=== PATIENT | male | born 1985 | race Caucasian/White ===

== ENCOUNTER 2017-03-12 09:19 | Emergency (ER) | payer OTHER ==
[2017-03-12] MEDS ORDERED: OXYCODONE-ACETAMINOPHEN 5-325 MG TABLET PO ONE (10:00)
[2017-03-12] MEDS ORDERED: SILVER SULFADIAZINE 1% CREAM 25 GM TP ONE (10:40)
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
[2017-03-12 11:25] LABS: APPEARANCE,URINE CLEAR; BILIRUBIN,URINE NEGATIVE (NEGATIVE); GLUCOSE, URINE NEGATIVE (NEGATIVE); KETONES,URINE NEGATIVE (NEGATIVE); LEUKOCYTE ESTERASE,URINE NEGATIVE (NEGATIVE); NITRITE,URINE NEGATIVE (NEGATIVE); PROTEIN,URINE NEGATIVE (NEGATIVE); URINE SPECIFIC GRAVITY 1.021
[2017-03-12 11:48] VITALS: BP 128/85
== END 2017-03-12 11:48 | disposition home or self-care (01) ==
LOC: ER 09:19
DX: S80.212A Abrasion, left knee, initial encounter (principal); S80.211A Abrasion, right knee, initial encounter; F17.200 Nicotine dependence, unspecified, uncomplicated; M79.671 Pain in right foot; M25.552 Pain in left hip; V23.4XXA Motorcycle driver injured in collision with car, pick-up truck or van in traffic accident, initial encounter; Y92.410 Unspecified street and highway as the place of occurrence of the external cause; Z86.14 Personal history of Methicillin resistant Staphylococcus aureus infection
CPT/HCPCS: 81001; 99283

== ENCOUNTER 2017-08-10 16:50 | Emergency (ER) | payer SELFPAY ==
[2017-08-10 17:19] VITALS: BP 129/86
--- NOTE | 2017-08-10 17:39 | ER Document Report ---
HPI - HPI Patient complains to provider of: dental abscess Onset: This morning Onset/Duration: Sudden Quality of pain: Throbbing Severity: Moderate Pain Level: 4 Context: Patient states he has been having dental problems for the past few years, and woke up this morning with swelling around right upper tooth. Has no local dentist but states he will call for follow-up appointment. Associated Symptoms: None Exacerbated by: Food Relieved by: Denies Similar symptoms previously: Yes Recently seen / treated by doctor: No - ROS ROS below otherwise negative: Yes Systems Reviewed and Negative: Yes All other systems reviewed and negative - CONSTITUTIONAL Constitutional: DENIES: Fever - EENT EENT: DENIES: Congestion - NEURO Neurology: DENIES: Headache - CARDIOVASCULAR Cardiovascular: DENIES: Chest pain - RESPIRATORY Respiratory: DENIES: Trouble Breathing - GASTROINTESTINAL Gastrointestinal: DENIES: Abdominal Pain - URINARY Urinary: DENIES: Dysuria - MUSCULOSKELETAL Musculoskeletal: DENIES: Extremity pain - DERM Skin Color: Normal Past Medical History - General Information source: Patient - Social History Smoking Status: Current Every Day Smoker Frequency of alcohol use: Occasional Drug Abuse: Marijuana Lives with: Family Family History: Reviewed & Not Pertinent Patient has suicidal ideation: No Patient has homicidal ideation: No Skin Medical History: Reports Hx MRSA Traumatic Medical History: Reports: Hx Fractures - hand and nose Past Surgical History: Reports: Hx Nose Surgery, Hx Orthopedic Surgery - R hand - Immunizations Immunizations up to date: Yes Hx Diphtheria, Pertussis, Tetanus Vaccination: Yes Vertical Provider Document - CONSTITUTIONAL Agree With Documented VS: Yes Exam Limitations: No Limitations General Appearance: WD/WN, No Apparent Distress - INFECTION CONTROL TRAVEL OUTSIDE OF THE [place] IN LAST 30 DAYS: No - HEENT HEENT: Atraumatic, Normal ENT Exam, Normocephalic Mouth Diagram: 1 - mild edema around tooth with decay - NECK Neck: Normal Inspection - RESPIRATORY Respiratory: Breath Sounds Normal, No Respiratory Distress O2 Sat by Pulse Oximetry: 99 - CARDIOVASCULAR Cardiovascular: Regular Rate, Regular Rhythm - MUSCULOSKELETAL/EXTREMETIES Musculoskeletal/Extremeties: MAEW - NEURO Level of Consciousness: Awake, Alert, Appropriate - DERM Integumentary: Warm, Dry, Abscess - dental Course - Vital Signs Vital signs: Temp Pulse Resp BP Pulse Ox 98.3 F 78 20 129/86 H 99 08/10/17 17:17 08/10/17 17:17 08/10/17 17:17 08/10/17 17:17 08/10/17 17:17 Discharge - Discharge Clinical Impression: Dental abscess Condition: Good Disposition: HOME, SELF-CARE Additional Instructions: Finish all antibiotics as prescribed Motrin as needed for pain You must follow-up with the dentist for further evaluation of dental problems Return as needed Prescriptions: Penicillin V Potassium [Penicillin Vk 250 mg Tablet] 250 mg PO Q6 #40 tablet
== END 2017-08-10 17:50 | disposition home or self-care (01) ==
LOC: ER 16:50
DX: K04.7 Periapical abscess without sinus (principal); F17.200 Nicotine dependence, unspecified, uncomplicated; Z86.14 Personal history of Methicillin resistant Staphylococcus aureus infection
CPT/HCPCS: 99282

== ENCOUNTER 2018-03-13 13:38 | Emergency (ER) | payer SELFPAY ==
[2018-03-13 13:42] VITALS: BP 133/80
--- NOTE | 2018-03-13 14:08 | ER Document Report ---
ED General - General Chief Complaint: Toothache Stated Complaint: MOUTH PAIN Time Seen by Provider: 03/13/18 13:58 Notes: 32-year-old male here with complaints of right upper tooth pain ongoing for the past several years but worsening over the past few days. Pain is worse with breathing and and eating. Pain is also worse with smoking cigarettes. He has tried taking Goody's powder for the symptoms. He denies any fevers chills drainage swelling. He has not yet seen a dentist for this. TRAVEL OUTSIDE OF THE [place] IN LAST 30 DAYS: No - Related Data Allergies/Adverse Reactions: bee stings Allergy (Uncoded 03/13/18 13:38) Past Medical History - Social History Smoking Status: Current Every Day Smoker Chew tobacco use (# tins/day): No Frequency of alcohol use: Social Drug Abuse: None Family History: Reviewed & Not Pertinent Patient has suicidal ideation: No Patient has homicidal ideation: No Renal/ Medical History: Denies: Hx Peritoneal Dialysis Skin Medical History: Reports Hx MRSA Traumatic Medical History: Reports: Hx Fractures - hand and nose Past Surgical History: Reports: Hx Nose Surgery, Hx Orthopedic Surgery - R hand - Immunizations Immunizations up to date: Yes Hx Diphtheria, Pertussis, Tetanus Vaccination: Yes Review of Systems - Review of Systems Notes: See history of present illness for pertinent positive review of systems; otherwise all review of systems have been reviewed and are negative Physical Exam - Vital signs Vitals: Temp Pulse Resp BP Pulse Ox 97.7 F 64 17 133/80 H 99 03/13/18 13:41 03/13/18 13:41 03/13/18 13:41 03/13/18 13:41 03/13/18 13:41 - Notes Notes: PHYSICAL EXAMINATION: GENERAL: Well-appearing and in no acute distress. HEAD: Atraumatic, normocephalic. EYES: Pupils equal round and reactive to light, extraocular movements intact, sclera anicteric, conjunctiva are normal. ENT: nares patent, oropharynx clear without exudates. Moist mucous membranes. Significant tartar buildup where the gingiva meets the teeth. Mild tenderness to palpation/percussion of the right upper teeth. No gingival erythema induration fluctuance drainage. NECK: Normal range of motion, supple without lymphadenopathy LUNGS: CTAB and equal. No wheezes rales or rhonchi. HEART: Regular rate and rhythm without murmurs EXTREMITIES: Normal range of motion, no pitting edema. No cyanosis. NEUROLOGICAL: Cranial nerves grossly intact. Normal sensory/motor exams. PSYCH: Normal mood, normal affect. SKIN: Warm, Dry, normal turgor, no rashes or lesions noted Course - Re-evaluation Re-evalutation: 03/13/18 14:08 MEDICAL DECISION MAKING: Concern for poor dentition Instructed patient follow-up with a dentist next day or few Will give a dose of pain medication here and prescription for same Patient understands and agrees to the plan of care - Vital Signs Vital signs: Temp Pulse Resp BP Pulse Ox 97.7 F 64 17 133/80 H 99 03/13/18 13:41 03/13/18 13:41 03/13/18 13:41 03/13/18 13:41 03/13/18 13:41 Discharge - Discharge Clinical Impression: Tartar deposits on teeth Condition: Good Disposition: HOME, SELF-CARE Instructions: Dentist Additional Instructions: You were seen in the emergency department at [facility]. Please followup with your primary dentist in the next few days for further management/ evaluation. Please return to the emergency department for worsening of symptoms or any symptom that you deem to be concerning or life-threatening. Thank you for allowing us to be part of your care. Prescriptions: Meloxicam 7.5 mg PO DAILYP PRN #7 tablet PRN Reason:
[2018-03-13] MEDS: MELOXICAM 7.5 MG TABLET PO ONE (14:11)
== END 2018-03-13 14:13 | disposition home or self-care (01) ==
LOC: ER 13:38
DX: K03.6 Deposits [accretions] on teeth (principal); K08.89 Other specified disorders of teeth and supporting structures; F17.210 Nicotine dependence, cigarettes, uncomplicated; Z91.030 Bee allergy status
CPT/HCPCS: 99282

== ENCOUNTER 2018-03-13 23:56 | Emergency (ER) | payer SELFPAY ==
[2018-03-14 00:18] VITALS: BP 130/86
--- NOTE | 2018-03-14 01:16 | ER Document Report ---
ED General - General Chief Complaint: Toothache Stated Complaint: MOUTH PAIN Time Seen by Provider: 03/14/18 01:14 Mode of Arrival: Ambulatory Information source: Patient Notes: 32-year-old male presents with complaints of dental pain, patient was seen here earlier today notes that he has bad taste in his mouth that there is drainage of pus. Patient denies any fevers or chills denies any swelling TRAVEL OUTSIDE OF THE [place] IN LAST 30 DAYS: No - HPI Onset: Yesterday Onset/Duration: Persistent Quality of pain: Achy Severity: Mild Pain Level: 1 Associated symptoms: Other Exacerbated by: Food Relieved by: Denies Similar symptoms previously: Yes Recently seen / treated by doctor: Yes - Related Data Allergies/Adverse Reactions: bee stings Allergy (Uncoded 03/14/18 00:17) Past Medical History - Social History Smoking Status: Current Every Day Smoker Cigarette use (# per day): Yes Chew tobacco use (# tins/day): No Smoking Education Provided: No Family History: Reviewed & Not Pertinent Renal/ Medical History: Denies: Hx Peritoneal Dialysis Skin Medical History: Reports Hx MRSA Traumatic Medical History: Reports: Hx Fractures - hand and nose Past Surgical History: Reports: Hx Nose Surgery, Hx Orthopedic Surgery - R hand - Immunizations Immunizations up to date: Yes Hx Diphtheria, Pertussis, Tetanus Vaccination: Yes Review of Systems - Review of Systems Notes: REVIEW OF SYSTEMS: CONSTITUTIONAL : Denies fever, chills, or sweats. Denies recent illness. EENT: admits to dental pain CARDIOVASCULAR: Denies chest pain. Denies palpitations or racing or irregular heart beat. Denies ankle edema. RESPIRATORY: Denies cough, cold, or chest congestion. Denies shortness of breath, difficulty breathing, or wheezing. GASTROINTESTINAL: Denies abdominal pain or distention. Denies nausea, vomiting , or diarrhea. Denies blood in vomitus, stools, or per rectum. Denies black, tarry stools. Denies constipation. GENITOURINARY: Denies difficulty urinating, painful urination, burning, frequency, blood in urine, or discharge. MUSCULOSKELETAL: Denies back or neck pain or stiffness. Denies joint pain or swelling. SKIN: Denies rash, lesions or sores. HEMATOLOGIC : Denies easy bruising or bleeding. LYMPHATIC: Denies swollen, enlarged glands. NEUROLOGICAL: Denies confusion or altered mental status. Denies passing out or loss of consciousness. Denies dizziness or lightheadedness. Denies headache. Denies weakness or paralysis or loss of use of either side. Denies problems with gait or speech. Denies sensory loss, numbness, or tingling. Denies seizures. PSYCHIATRIC: Denies anxiety or stress. Denies depression, suicidal ideation, or homicidal ideation. ALL OTHER SYSTEMS REVIEWED AND NEGATIVE. Dictation was performed using [employer] voice recognition software PHYSICAL EXAMINATION: GENERAL: Well-appearing, well-nourished and in no acute distress. HEAD: Atraumatic, normocephalic. EYES: Pupils equal round and reactive to light, extraocular movements intact, sclera anicteric, conjunctiva are normal. ENT: admits to dental pain tooth #1, all teeth apear to have caries or ginigvitis associated NECK: Normal range of motion, supple without lymphadenopathy LUNGS: Breath sounds clear to auscultation bilaterally and equal. No wheezes rales or rhonchi. HEART: Regular rate and rhythm without murmurs ABDOMEN: Soft, nontender, nondistended abdomen. No guarding, no rebound. No masses appreciated. Musculoskeletal: Normal range of motion, no pitting or edema. No cyanosis. NEUROLOGICAL: Cranial nerves grossly intact. Normal speech, normal gait. Normal sensory, motor exams PSYCH: Normal mood, normal affect. SKIN: Warm, Dry, normal turgor, no rashes or lesions noted. Physical Exam - Vital signs Vitals: Temp Pulse Resp BP Pulse Ox 97.3 F 73 18 130/86 H 98 03/14/18 00:17 03/14/18 00:17 03/14/18 00:17 03/14/18 00:17 03/14/18 00:17 Course - Re-evaluation Re-evalutation: 03/14/18 01:49 Patient is extremely poor dentition, he will be started on antibiotics given for pain control patient does have a dentist follow-up with Airway is otherwise patent No abscess is noted no drainage is seen After performing a Medical Screening Examination, I estimate there is LOW risk for a DEEP SPACE INFECTION (e.g., CHENG'S ANGINA OR RETROPHARYNGEAL ABSCESS), MENINGITIS, INTRACRANIAL HEMORRHAGE, or AIRWAY COMPROMISE, thus I consider the discharge disposition reasonable. Also, there is no evidence or peritonitis, sepsis, or toxicity. I have reevaluated this patient multiple times and no significant life threatening changes are noted. The patient and I have discussed the diagnosis and risks, and we agree with discharging home with close follow-up with the understanding that symptoms and presentations can change. We also discussed returning to the Emergency Department immediately if new or worsening symptoms occur. We have discussed the symptoms which are most concerning (e.g., changing or worsening pain, trouble swallowing or breathing, neck stiffness or fever) that necessitate immediate return. 03/14/18 01:49 - Vital Signs Vital signs: Temp Pulse Resp BP Pulse Ox 97.3 F 73 18 130/86 H 98 03/14/18 00:17 03/14/18 00:17 03/14/18 00:17 03/14/18 00:17 03/14/18 00:17 Discharge - Discharge Clinical Impression: Dental caries, Toothache Condition: Stable Disposition: HOME, SELF-CARE Instructions: Toothache ([facility]) Additional Instructions: Please follow-up with dentist in 1 week return immediately if there are any other concerns Prescriptions: Hydrocodone/Acetaminophen [[place] 5-325 mg Tablet] 1 tab PO Q6 #8 tablet Penicillin V Potassium [Penicillin Vk 500 mg Tablet] 500 mg PO Q6 #40 tablet
[2018-03-14] MEDS: HYDROCODONE/ACETAMINOPHEN 5-325 MG TABLET PO ONE (01:38)
[2018-03-14] MEDS: AMOXICILLIN TRIHYDRATE 500 MG CAPSULE PO ONE (01:38)
== END 2018-03-14 01:43 | disposition home or self-care (01) ==
LOC: ER 23:56
DX: K02.9 Dental caries, unspecified (principal); K08.89 Other specified disorders of teeth and supporting structures; F17.210 Nicotine dependence, cigarettes, uncomplicated
CPT/HCPCS: 99282

== ENCOUNTER 2018-07-05 10:21 | Emergency (ER) | payer SELFPAY | END 2018-07-05 13:12 | disposition left against medical advice (07) | LOC: ER 10:21 | DX: Z53.21 Procedure and treatment not carried out due to patient leaving prior to being seen by health care provider (principal) ==

== ENCOUNTER 2018-08-25 22:36 | Emergency (ER) | payer SELFPAY ==
[2018-08-25 22:45] VITALS: BP 140/83
--- NOTE | 2018-08-25 23:36 | ER Document Report ---
ED Medical Screen (RME) - General Chief Complaint: Alcohol Withdrawl Stated Complaint: ETOH Time Seen by Provider: 08/25/18 23:34 Notes: 32-year-old male, chief complaint of alcohol dependence and abuse, methamphetamine dependence and abuse, and suicidal ideations. States that he does get alcohol withdrawals including tremors and feeling sick. Admits to drinking alcohol today. When asked if he is suicidal, he states that "if I do kill myself I am using drugs, it is the best way to go". Formally on anxiety medications, denies any current medications. TRAVEL OUTSIDE OF THE [place] IN LAST 30 DAYS: No - Related Data Allergies/Adverse Reactions: No Known Drug Allergies Allergy (Verified 07/05/18 10:23) bee stings Allergy (Uncoded 07/05/18 10:23) Past Medical History Renal/ Medical History: Denies: Hx Peritoneal Dialysis Skin Medical History: Reports Hx MRSA Traumatic Medical History: Reports: Hx Fractures - hand and nose Past Surgical History: Reports: Hx Nose Surgery, Hx Orthopedic Surgery - R hand - Immunizations Immunizations up to date: Yes Hx Diphtheria, Pertussis, Tetanus Vaccination: Yes Physical Exam - Vital signs Vitals: Temp Pulse Resp BP Pulse Ox 98.0 F 91 15 140/83 H 99 08/25/18 22:43 08/25/18 22:43 08/25/18 22:43 08/25/18 22:43 08/25/18 22:43 - General General appearance: Other - Appears intoxicated, slurring some words, however walks with a steady gait. Does not appear to be in any distress. Course - Vital Signs Vital signs: Temp Pulse Resp BP Pulse Ox 98.0 F 91 15 140/83 H 99 08/25/18 22:43 08/25/18 22:43 08/25/18 22:43 08/25/18 22:43 08/25/18 22:43
[2018-08-26 00:22] LABS: ABSOLUTE BASOPHILS # (AUTO) 0.2 10^3/uL (0.0-0.2); ABSOLUTE EOSINOPHILS # (AUTO) 0.7 10^3/uL (0.0-0.6); ABSOLUTE LYMPHOCYTES (AUTO) 2.6 10^3/uL (0.5-4.7); ABSOLUTE MONOCYTES (AUTO) 0.5 10^3/uL (0.1-1.4); ABSOLUTE NEUT (AUTO) 5.8 10^3/uL (1.7-8.2); BASOPHILS % (AUTO) 2.4 % (0-2); EOSINOPHILS % (AUTO) 7.4 % (0-6); HEMATOCRIT 45.4 % (37.9-51.0); LYMPHOCYTES % (AUTO) 26.5 % (13-45); MEAN CORPUSCULAR HEMOGLOBIN 33.7 pg (27.0-33.4); MEAN CORPUSCULAR HGB CONC 35.3 g/dL (32.0-36.0); MEAN CORPUSCULAR VOLUME 96 fl (80-97); MONOCYTES % (AUTO) 5.2 % (3-13); PLATELET COUNT 284 10^3/uL (150-450); RED BLOOD COUNT 4.75 10^6/uL (4.35-5.55); RED CELL DISTRIBUTION WIDTH 13.1 % (11.5-14.0); SEGMENTED NEUTROPHILS % (AUTO) 58.5 % (42-78); TOTAL CELLS COUNTED % (AUTO) 100 %; WHITE BLOOD COUNT 9.9 10^3/uL (4.0-10.5)
[2018-08-26 00:25] LABS: APPEARANCE,URINE CLEAR; BILIRUBIN,URINE NEGATIVE (NEGATIVE); COLOR,URINE STRAW; GLUCOSE, URINE NEGATIVE (NEGATIVE); KETONES,URINE NEGATIVE (NEGATIVE); LEUKOCYTE ESTERASE,URINE NEGATIVE (NEGATIVE); NITRITE,URINE NEGATIVE (NEGATIVE); PROTEIN,URINE NEGATIVE (NEGATIVE); URINE SPECIFIC GRAVITY 1.002; UROBILINOGEN,URINE NEGATIVE mg/dL (<2.0)
[2018-08-26 00:39] LABS: ALANINE AMINOTRANSFERASE 20 U/L (21-72); ALBUMIN 3.5 g/dL (3.5-5.0); ALCOHOL 239 mg/dL (NONE DETECTED); ALKALINE PHOSPHATASE 53 U/L (38-126); ANION GAP 9 (5-19); ASPARTATE AMINO TRANSFERASE 20 U/L (17-59); BILIRUBIN,DIRECT 0.3 mg/dL (0.0-0.4); BILIRUBIN,TOTAL 0.3 mg/dL (0.2-1.3); BLOOD UREA NITROGEN 5 mg/dL (7-20); CALCIUM 8.7 mg/dL (8.4-10.2); CARBON DIOXIDE 21 mmol/L (22-30); CHLORIDE 112 mmol/L (98-107); GLUCOSE 90 mg/dL (75-110); POTASSIUM 3.6 mmol/L (3.6-5.0); SODIUM 142.2 mmol/L (137-145); TOTAL PROTEIN 5.9 g/dL (6.3-8.2)
[2018-08-26 00:41] LABS: ACETAMINOPHEN < 10 ug/mL (10-30); SALICYLATE < 1.0 mg/dL (2.0-20.0)
[2018-08-26 00:51] LABS: URINE BARBITURATES SCREEN NEGATIVE; URINE BENZODIAZEPINES SCREEN NEGATIVE; URINE COCAINE SCREEN UNCONFIRMED POSITIVE; URINE MARIJUANA (THC) SCREEN UNCONFIRMED POSITIVE; URINE METHADONE SCREEN NEGATIVE; URINE PHENCYCLIDINE SCREEN NEGATIVE
[2018-08-26 01:05] LABS: URINE AMPHETAMINES SCREEN NEGATIVE
[2018-08-26] MEDS ORDERED: NICOTINE 21 MG/24 HR PATCH.TD24 TD ONE ×2 (01:27)
--- NOTE | 2018-08-26 01:49 | ER Document Report ---
ED General - General Chief Complaint: Alcohol Withdrawl Stated Complaint: ETOH Time Seen by Provider: 08/25/18 23:34 Cannot obtain history due to: Intoxicated Notes: Patient is a 32-year-old male with polysubstance abuse and dependence who presents requesting detox. Although the patient states he is here looking for detox resources he admits that he is currently intoxicated. He is somewhat belligerent with me on initial assessment, very agitated about having blood draws etc. It is quite difficult to ascertain a clear history from him on initial assessment. He is adamantly denying suicidal ideation, states he only said that to get attention and so that he could get into rehab. Denies acute medical complaints. States repeatedly "I do not know why they sent me to the hospital, I am not sick I am just trying to get into rehab". TRAVEL OUTSIDE OF THE [place] IN LAST 30 DAYS: No - Related Data Allergies/Adverse Reactions: No Known Drug Allergies Allergy (Verified 07/05/18 10:23) bee stings Allergy (Uncoded 07/05/18 10:23) Past Medical History - General Information source: Patient - Social History Smoking Status: Current Every Day Smoker Frequency of alcohol use: Heavy Drug Abuse: Bath salts, Cocaine, Marijuana, Methamphetamine Family History: Reviewed & Not Pertinent Patient has suicidal ideation: No Patient has homicidal ideation: No Renal/ Medical History: Denies: Hx Peritoneal Dialysis Skin Medical History: Reports Hx MRSA Psychiatric Medical History: Reports: Hx Attention Deficit Hyperactivity Disorder, Hx Depression Traumatic Medical History: Reports: Hx Fractures - hand and nose Past Surgical History: Reports: Hx Nose Surgery, Hx Orthopedic Surgery - R hand - Immunizations Immunizations up to date: Yes Hx Diphtheria, Pertussis, Tetanus Vaccination: Yes Review of Systems - Review of Systems Notes: Constitutional: Negative for fever. HENT: Negative for sore throat. Eyes: Negative for visual changes. Cardiovascular: Negative for chest pain. Respiratory: Negative for shortness of breath. Gastrointestinal: Negative for abdominal pain, vomiting or diarrhea. Genitourinary: Negative for dysuria. Musculoskeletal: Negative for back pain. Skin: Negative for rash. Neurological: Negative for headaches, weakness or numbness. 10 point ROS negative except as marked above and in HPI. Physical Exam - Vital signs Vitals: Temp Pulse Resp BP Pulse Ox 98.0 F 91 15 140/83 H 99 08/25/18 22:43 08/25/18 22:43 08/25/18 22:43 08/25/18 22:43 08/25/18 22:43 Notes: PHYSICAL EXAMINATION: Exam is limited by the patient's agitation GENERAL: Intoxicated, somewhat agitated HEAD: Atraumatic, normocephalic. EYES: extraocular movements intact, sclera anicteric, conjunctiva are normal. ENT: nares patent, oropharynx clear without exudates. Moderately dry mucous membranes. NECK: Normal range of motion LUNGS: Normal work of breathing EXTREMITIES: Normal range of motion, no pitting or edema. No cyanosis. NEUROLOGICAL: No focal neurological deficits. Moves all extremities spontaneously PSYCH: Agitated, speaking in a loud voice, threatening gestures SKIN: Warm, Dry, normal turgor, no rashes or lesions noted. Course - Re-evaluation Re-evalutation: 08/26/18 01:45 Presentation of an intoxicated, alcohol patient who is belligerent, agitated, quite aggressive to me during contact. He is very agitated that we proceeded to do a blood draw, had placed him on monitor, states he is here because he supposed to be going to rehab. The patient was difficult to redirect, adamantly denied suicidal ideation, stated that he had said this because "that is the only fucking way you can get help these days". He is demanding to leave , states he does not wish to remain. The patient is not having any evidence of alcohol withdrawal. His alcohol is 239. He will be discharged at his request, does not meet IVC criteria. - Vital Signs Vital signs: Temp Pulse Resp BP Pulse Ox 98.0 F 91 15 140/83 H 99 08/25/18 22:43 08/25/18 22:43 08/25/18 22:43 08/25/18 22:43 08/25/18 22:43 - Laboratory Result Diagrams: 08/26/18 00:10 08/26/18 00:10 Laboratory results interpreted by me: 08/26/18 08/26/18 00:10 00:10 MCH 33.7 H Eosinophils % 7.4 H Basophils % 2.4 H Absolute Eosinophils 0.7 H Chloride 112 H Carbon Dioxide 21 L BUN 5 L ALT 20 L Total Protein 5.9 L Salicylates < 1.0 L Acetaminophen < 10 L Discharge - Discharge Clinical Impression: Polysubstance abuse, Aggressive behavior Alcohol intoxication Qualifiers: Complication of substance-induced condition: uncomplicated Qualified Code(s): F10.920 - Alcohol use, unspecified with intoxication, uncomplicated Disposition: ELOPED
--- NOTE | 2018-08-26 10:12 | EKG REPORT ---
SEVERITY:- ABNORMAL ECG - SINUS RHYTHM PROBABLE LEFT VENTRICULAR HYPERTROPHY ST ELEV, PROBABLE NORMAL EARLY REPOL PATTERN : Confirmed by: Sebastian Turner 26-Aug-2018 10:11:37
== END 2018-08-26 01:34 | disposition left against medical advice (07) ==
LOC: ER 22:36
DX: F10.920 Alcohol use, unspecified with intoxication, uncomplicated (principal); F19.10 Other psychoactive substance abuse, uncomplicated; F91.1 Conduct disorder, childhood-onset type; Y90.7 Blood alcohol level of 200-239 mg/100 ml; Z86.14 Personal history of Methicillin resistant Staphylococcus aureus infection; F17.200 Nicotine dependence, unspecified, uncomplicated
CPT/HCPCS: 36415; 80053; 80307; 81001; 85025; 93005; 93010

== ENCOUNTER 2018-12-05 18:05 | Emergency (ER) | payer SELFPAY ==
[2018-12-05] MEDS ORDERED: ACETAMINOPHEN 325 MG TABLET PO ONE (18:28)
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
[2018-12-05 18:36] VITALS: BP 119/57
--- NOTE | 2018-12-05 20:43 | ER Document Report ---
HPI - HPI Patient complains to provider of: finger injury Time Seen by Provider: 12/05/18 20:29 Pain Level: 5 Context: Patient is a 32-year-old male presents to the emergency department complaining of a left hand injury. Patient states he was helping a friend move an air compressor when it accidentally slipped and fell down on his left middle finger, left ring finger, and left pinky. 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 Patient states his tetanus is up-to-date. Patient denies any other injuries Past medical history: None Medications: None Allergies: None - CONSTITUTIONAL Constitutional: DENIES: Fever, Chills - MUSCULOSKELETAL Musculoskeletal: REPORTS: Extremity pain Past Medical History - General Information source: Patient - Social History Smoking Status: Current Every Day Smoker Chew tobacco use (# tins/day): No Frequency of alcohol use: None Drug Abuse: None Family History: Reviewed & Not Pertinent Patient has suicidal ideation: No Patient has homicidal ideation: No Renal/ Medical History: Denies: Hx Peritoneal Dialysis Skin Medical History: Reports Hx MRSA Psychiatric Medical History: Reports: Hx Attention Deficit Hyperactivity Disorder, Hx Depression Traumatic Medical History: Reports: Hx Fractures - hand and nose Past Surgical History: Reports: Hx Nose Surgery, Hx Orthopedic Surgery - R hand - Immunizations Immunizations up to date: Yes Hx Diphtheria, Pertussis, Tetanus Vaccination: Yes Vertical Provider Document - CONSTITUTIONAL Agree With Documented VS: Yes Notes: GENERAL: Alert, interacts well. No acute distress. HEAD: Normocephalic, atraumatic. EYES: Pupils equal, round, and reactive to light. Extraocular movements intact. ENT: Oral mucosa moist, tongue midline. NECK: Full range of motion. Supple. Trachea midline. LUNGS: Clear to auscultation bilaterally, no wheezes, rales, or rhonchi. No respiratory distress. HEART: Regular rate and rhythm. No murmur ABDOMEN: Soft, non-tender. Non-distended. Bowel sounds present in all 4 quadrants. EXTREMITIES: Moves all 4 extremities spontaneously. No edema, normal radial and dorsalis pedis pulses bilaterally. No cyanosis. Patient is able to adduct and abduct all 5 fingers on the left hand against resistance. Patient also able to flex and extend all 5 fingers. Patient does have a abrasion noted to the posterior DIP of the left middle finger. Also 0.25 cm laceration noted near the nailbed of the left pinky. BACK: no cervical, thoracic, lumbar midline tenderness. No saddle anesthesia, normal distal neurovascular exam. NEUROLOGICAL: Alert and oriented x3. Normal speech. cranial nerves II through XII grossly intact PSYCH: Normal affect, normal mood. SKIN: Warm, dry, normal turgor. No rashes or lesions noted. - INFECTION CONTROL TRAVEL OUTSIDE OF THE [place] IN LAST 30 DAYS: No Course - Re-evaluation Re-evalutation: 12/05/18 20:40 Patient's x-ray shows no signs of new injuries, no fractures or dislocations noted. Discussed patient's past injury to his left distal middle finger which coincides with his x-ray results. Patient states his tetanus is up-to-date. Order for wounds to be cleansed and dressed placed, discussed with staff educator, patient stable for discharge. - Vital Signs Vital signs: Temp Pulse Resp BP Pulse Ox 98.3 F 104 H 16 119/57 L 96 12/05/18 18:33 12/05/18 18:33 12/05/18 18:33 12/05/18 18:33 12/05/18 18:33 Discharge - Discharge Clinical Impression: Crush injury, Abrasion Finger injury Qualifiers: Encounter type: initial encounter Laterality: left Qualified Code(s): S69.92XA - Unspecified injury of left wrist, hand and finger(s), initial encounter Condition: Stable Disposition: HOME, SELF-CARE Instructions: Abrasions ([facility]), Crush Injury ([facility]) Additional Instructions: As we discussed you have been seen and treated for an injury to your left hand. Your x-rays revealed no signs of fractures at this time. Your tetanus immunization is up-to-date so there is no need for tetanus vaccine at this time. Please keep the wound clean and dry. Please follow-up with your primary care provider in the next 24-48 hours. Please return to the emergency room for any other concerning symptoms. Forms: Return to Work
== END 2018-12-05 20:45 | disposition home or self-care (01) ==
LOC: ER 18:05
DX: S67.193A Crushing injury of left middle finger, initial encounter (principal); S67.195A Crushing injury of left ring finger, initial encounter; S67.197A Crushing injury of left little finger, initial encounter; W23.1XXA Caught, crushed, jammed, or pinched between stationary objects, initial encounter; F17.200 Nicotine dependence, unspecified, uncomplicated; Z86.14 Personal history of Methicillin resistant Staphylococcus aureus infection
CPT/HCPCS: 99283

== ENCOUNTER 2019-02-22 10:11 | Emergency (ER) | payer SELFPAY ==
[2019-02-22] MEDS ORDERED: NORMAL SALINE 1000 ML 1,000 ML IV ONE (10:40)
[2019-02-22] MEDS ORDERED: ONDANSETRON HCL INJ/PF 4 MG/2 ML SDV IV ONE (10:40)
--- NOTE | 2019-02-22 10:42 | ER Document Report ---
ED Medical Screen (RME) - General Chief Complaint: Abdominal Pain Stated Complaint: ABDOMINAL PAIN Time Seen by Provider: 02/22/19 10:24 TRAVEL OUTSIDE OF THE [place] IN LAST 30 DAYS: No - HPI Notes: 02/22/19 10:40 Patient is a 33-year-old male with no significant past medical history presents emergency department complaining of mid abdominal pain near his umbilicus that is described as relatively sharp with intermittent cramping that began over the past 2-3 days. He has had associated nausea and vomiting initially, but just nausea now. Patient states that he did have some loose stool yesterday, but nothing today. Patient states that there is some burning when he urinates without any discharge. No surgical history to his abdomen. Denies any headache, fever, neck pain, URI, sore throat, chest pain, palpitations, syncope, cough, shortness of breath, wheeze, dyspnea, urinary retention, hematuria, back pain, loss of control of bowel or bladder, numbness/tingling, saddle anesthesia, muscle paralysis/weakness, or rash. I have treated and performed a rapid initial assessment of this patient. A comprehensive ED assessment and evaluation of the patient, analysis of test results and completion of medical decision making process will be conducted by additional ED providers. PHYSICAL EXAMINATION: GENERAL: Well-appearing, well-nourished and in no acute distress. A&Ox4. Answers questions appropriately. LUNGS: Breath sounds clear to auscultation bilaterally and equal. No wheezes rales or rhonchi. HEART: Regular rate and rhythm without murmurs, rubs, gallops. ABDOMEN: Soft, nondistended abdomen. No guarding, no rebound. Normal bowel sounds present. No CVA tenderness bilaterally. + tenderness mid abd, but difficult to assess in PIT room. Extremities: No cyanosis, clubbing, or edema b/l. NEUROLOGICAL: Normal speech, normal gait. PSYCH: Normal mood, normal affect. - Related Data Allergies/Adverse Reactions: No Known Drug Allergies Allergy (Verified 02/22/19 10:12) bee stings Allergy (Uncoded 02/22/19 10:12) Past Medical History Renal/ Medical History: Denies: Hx Peritoneal Dialysis Skin Medical History: Reports Hx MRSA Psychiatric Medical History: Reports: Hx Attention Deficit Hyperactivity Disorder, Hx Depression Traumatic Medical History: Reports: Hx Fractures - hand and nose Past Surgical History: Reports: Hx Nose Surgery, Hx Orthopedic Surgery - R hand - Immunizations Immunizations up to date: Yes Hx Diphtheria, Pertussis, Tetanus Vaccination: Yes Physical Exam - Vital signs Vitals: Temp Pulse Resp BP Pulse Ox 97.8 F 77 18 141/93 H 97 02/22/19 10:16 02/22/19 10:16 02/22/19 10:16 02/22/19 10:16 02/22/19 10:16 Course - Vital Signs Vital signs: Temp Pulse Resp BP Pulse Ox 97.8 F 77 18 141/93 H 97 02/22/19 10:16 02/22/19 10:16 02/22/19 10:16 02/22/19 10:16 02/22/19 10:16
[2019-02-22 11:29] LABS: ABSOLUTE BASOPHILS # (AUTO) 0.1 10^3/uL (0.0-0.2); ABSOLUTE EOSINOPHILS # (AUTO) 0.6 10^3/uL (0.0-0.6); ABSOLUTE LYMPHOCYTES (AUTO) 1.8 10^3/uL (0.5-4.7); ABSOLUTE MONOCYTES (AUTO) 0.7 10^3/uL (0.1-1.4); ABSOLUTE NEUT (AUTO) 7.5 10^3/uL (1.7-8.2); BASOPHILS % (AUTO) 0.9 % (0-2); EOSINOPHILS % (AUTO) 5.6 % (0-6); HEMATOCRIT 50.4 % (37.9-51.0); HEMOGLOBIN 17.9 g/dL (13.5-17.0); LYMPHOCYTES % (AUTO) 16.9 % (13-45); MEAN CORPUSCULAR HEMOGLOBIN 34.2 pg (27.0-33.4); MEAN CORPUSCULAR HGB CONC 35.5 g/dL (32.0-36.0); MEAN CORPUSCULAR VOLUME 96 fl (80-97); MONOCYTES % (AUTO) 6.1 % (3-13); PLATELET COUNT 242 10^3/uL (150-450); RED BLOOD COUNT 5.24 10^6/uL (4.35-5.55); RED CELL DISTRIBUTION WIDTH 13.4 % (11.5-14.0); SEGMENTED NEUTROPHILS % (AUTO) 70.5 % (42-78); TOTAL CELLS COUNTED % (AUTO) 100 %; WHITE BLOOD COUNT 10.7 10^3/uL (4.0-10.5)
[2019-02-22 11:42] LABS: APPEARANCE,URINE CLEAR; BILIRUBIN,URINE NEGATIVE (NEGATIVE); COLOR,URINE YELLOW; GLUCOSE, URINE NEGATIVE (NEGATIVE); KETONES,URINE NEGATIVE (NEGATIVE); LEUKOCYTE ESTERASE,URINE NEGATIVE (NEGATIVE); NITRITE,URINE NEGATIVE (NEGATIVE); PROTEIN,URINE NEGATIVE (NEGATIVE); URINE SPECIFIC GRAVITY 1.013; UROBILINOGEN,URINE NEGATIVE mg/dL (<2.0)
--- NOTE | 2019-02-22 11:59 | ER Document Report ---
ED General - General Chief Complaint: Abdominal Pain Stated Complaint: ABDOMINAL PAIN Time Seen by Provider: 02/22/19 10:24 Primary Care Provider: [facility] [Provider Group] - Follow up in 3-5 days [facility] [Provider Group] - Follow up as needed TRAVEL OUTSIDE OF THE [place] IN LAST 30 DAYS: No - HPI Notes: Patient is a 33-year-old male that presents to the emergency department for chief complaint of abdominal pain. Patient reports periumbilical crampy abdominal pain that is intermittent in nature for the last 3-4 days. He states he was having 1-2 episodes of emesis, and his last emesis was yesterday. Patient also reports associated diarrhea. Patient states he is weaning himself off of alcohol. He is a daily drinker and states he has had very minimal today. He states he has had 3-4 shots of liquor yesterday and none so far today. He denies history of alcohol withdrawal. He states he would like to not be drinking alcohol anymore. He denies any fever, chills or hallucinations. He has not taken any medication at home for his symptoms. Past Medical History: Negative Past Surgical History: Negative Social History: Daily tobacco, daily alcohol, denies drug use Family History: Reviewed and noncontributory for presenting illness Allergies: Reviewed, see documented allergy list. REVIEW OF SYSTEMS: CONSTITUTIONAL : No fever No chills No diaphoresis No recent illness EENT: No vision changes No congestion No sore throat CARDIOVASCULAR: No chest pain No palpitations RESPIRATORY: No shortness of breath No cough No difficulty breathing GASTROINTESTINAL: abdominal pain nausea vomiting diarrhea GENITOURINARY: No dysuria No hematuria No difficulty urinating MUSCULOSKELETAL: No back pain No leg pain No arm pain SKIN: No rashes No lesions LYMPHATIC: No swollen, enlarged glands. NEUROLOGICAL: No lightheadedness No headache No weakness No paresthesias PSYCHIATRIC: No anxiety No depression PHYSICAL EXAMINATION: Vital signs reviewed, nursing noted reviewed. GENERAL: Well-appearing, well-nourished and in no acute distress. HEAD: Atraumatic, normocephalic. EYES: Eyes appear normal, extraocular movements intact, sclera anicteric, conjunctiva are normal. ENT: nares patent, oropharynx clear without exudates. Moist mucous membranes. NECK: Normal range of motion, supple without lymphadenopathy LUNGS: Breath sounds clear to auscultation bilaterally and equal. No wheezes rales or rhonchi. HEART: Regular rate and rhythm without murmurs ABDOMEN: Soft, mild diffuse tenderness, protuberant, normoactive bowel sounds. No rebound, guarding, or rigidity. No masses appreciated. EXTREMITIES: Nontender, good range of motion, no pitting or edema. NEUROLOGICAL: No focal neurological deficits. Moves all extremities spontaneously Motor and sensory grossly intact on exam. PSYCH: Normal mood, normal affect. SKIN: Warm, Dry, normal turgor, no rashes or lesions noted on exposed skin - Related Data Allergies/Adverse Reactions: No Known Drug Allergies Allergy (Verified 02/22/19 10:12) bee stings Allergy (Uncoded 02/22/19 10:12) Past Medical History - Social History Smoking Status: Current Every Day Smoker Family History: Reviewed & Not Pertinent Patient has suicidal ideation: No Patient has homicidal ideation: No Renal/ Medical History: Denies: Hx Peritoneal Dialysis Skin Medical History: Reports Hx MRSA Psychiatric Medical History: Reports: Hx Attention Deficit Hyperactivity Disorder, Hx Depression Traumatic Medical History: Reports: Hx Fractures - hand and nose Past Surgical History: Reports: Hx Nose Surgery, Hx Orthopedic Surgery - R hand - Immunizations Immunizations up to date: Yes Hx Diphtheria, Pertussis, Tetanus Vaccination: Yes Physical Exam - Vital signs Vitals: Temp Pulse Resp BP Pulse Ox 97.8 F 77 18 141/93 H 97 02/22/19 10:16 02/22/19 10:16 02/22/19 10:16 02/22/19 10:16 02/22/19 10:16 Course - Re-evaluation Re-evalutation: 02/22/19 12:10 Vitals reviewed. Nursing notes reviewed. Patient felt improved after fluids and Zofran. He has not had any vomiting in the ER. He is still complaining of abdominal pain and was given a dose of Toradol. Patient's lab work shows elevated lipase consistent with acute pancreatitis from his alcoholism. The remainder of his blood work is unremarkable. CT will be ordered to further evaluate patient's pancreas. He is currently not tachycardic or tremulous to suggest acute alcohol withdrawal requiring treatment. Laboratory 02/22/19 02/22/19 02/22/19 10:59 10:59 10:59 WBC 10.7 H RBC 5.24 Hgb 17.9 H Hct 50.4 MCV 96 MCH 34.2 H MCHC 35.5 RDW 13.4 Plt Count 242 Seg Neutrophils % 70.5 Lymphocytes % 16.9 Monocytes % 6.1 Eosinophils % 5.6 Basophils % 0.9 Absolute Neutrophils 7.5 Absolute Lymphocytes 1.8 Absolute Monocytes 0.7 Absolute Eosinophils 0.6 Absolute Basophils 0.1 Sodium 137.1 Potassium 4.5 Chloride 102 Carbon Dioxide 25 Anion Gap 10 BUN 13 Creatinine 0.79 Est GFR ( Amer) > 60 Est GFR (Non-Af Amer) > 60 Glucose 89 Calcium 9.7 Total Bilirubin 0.5 Direct Bilirubin 0.3 Neonat Total Bilirubin Not Reportable Neonat Direct Bilirubin Not Reportable Neonat Indirect Bili Not Reportable AST 31 ALT 29 Alkaline Phosphatase 83 Total Protein 7.6 Albumin 4.5 Lipase 448.4 H Urine Color YELLOW Urine Appearance CLEAR Urine pH 7.0 Ur Specific [place] 1.013 Urine Protein NEGATIVE Urine Glucose (UA) NEGATIVE Urine Ketones NEGATIVE Urine Blood SMALL H Urine Nitrite NEGATIVE Urine Bilirubin NEGATIVE Urine Urobilinogen NEGATIVE Ur Leukocyte Esterase NEGATIVE Urine WBC (Auto) 0 Urine RBC (Auto) 7 Urine Mucus (Auto) RARE Urine Ascorbic Acid NEGATIVE 02/22/19 13:48 Patient reevaluated and clinically appears improved. Patient reports he had significant symptom medic relief after Toradol. He has been able to tolerate drinking water and Gatorade without emesis. His CT scan shows no necrosis or abscess around the pancreas. Patient does have a mild pancreatitis but is tolerating intake and his pain is controlled. I had a long conversation regarding alcohol cessation. Currently his alcohol levels are negative and he i s not having any acute alcohol withdrawal symptoms. He will follow with [facility] for further substance abuse management. Patient counseled on return precautions and verbalized understanding. He was discharged in stable condition. - Vital Signs Vital signs: Temp Pulse Resp BP Pulse Ox 97.8 F 77 18 141/93 H 97 02/22/19 10:16 02/22/19 10:16 02/22/19 10:16 02/22/19 10:16 02/22/19 10:16 - Laboratory Result Diagrams: 02/22/19 10:59 02/22/19 10:59 Laboratory results interpreted by me: 02/22/19 02/22/19 02/22/19 10:59 10:59 10:59 WBC 10.7 H Hgb 17.9 H MCH 34.2 H Lipase 448.4 H Urine Blood SMALL H Discharge - Discharge Clinical Impression: Elevated blood pressure reading, Alcohol abuse Nausea and vomiting Qualifiers: Vomiting type: unspecified Vomiting Intractability: non-intractable Qualified Code(s): R11.2 - Nausea with vomiting, unspecified Abdominal pain Qualifiers: Abdominal location: generalized Qualified Code(s): R10.84 - Generalized abdominal pain Pancreatitis Qualifiers: Chronicity: acute Pancreatitis type: alcohol induced Acute pancreatitis complication: unspecified Qualified Code(s): K85.20 - Alcohol induced acute pancreatitis without necrosis or infection Condition: Stable Disposition: HOME, SELF-CARE Instructions: Chronic Alcoholism ([facility]), Pancreatitis ([facility]), Vomiting ([facility]) Additional Instructions: Please return to the emergency department if you have any worsening, or concern of your symptoms. Please return to the emergency department if you develop chest pain, difficulty breathing, severe abdominal pain, or ongoing vomiting. Please follow-up with your primary care physician in 2-3 days and any other recommended physicians. If prescribed, take all medications as directed. If you have any questions or concerns do not hesitate to return the emergency department for evaluation. You need to have your blood pressure rechecked at your primary care doctor's office, it was elevated in the ER today. Prescriptions: Ondansetron [Zofran Odt 4 mg Tablet] 1 tab PO Q4H PRN #15 tab.rapdis PRN Reason: For Nausea/Vomiting Forms: Elevated Blood Pressure Referrals: [facility] [Provider Group] - Follow up in 3-5 days [facility] [Provider Group] - Follow up as needed
[2019-02-22 12:00] LABS: ALANINE AMINOTRANSFERASE 29 U/L (21-72); ALBUMIN 4.5 g/dL (3.5-5.0); ALKALINE PHOSPHATASE 83 U/L (38-126); ANION GAP 10 (5-19); ASPARTATE AMINO TRANSFERASE 31 U/L (17-59); BILIRUBIN,DIRECT 0.3 mg/dL (0.0-0.4); BILIRUBIN,TOTAL 0.5 mg/dL (0.2-1.3); BLOOD UREA NITROGEN 13 mg/dL (7-20); CALCIUM 9.7 mg/dL (8.4-10.2); CARBON DIOXIDE 25 mmol/L (22-30); CHLORIDE 102 mmol/L (98-107); GLUCOSE 89 mg/dL (75-110); LIPASE 448.4 U/L (23-300); POTASSIUM 4.5 mmol/L (3.6-5.0); SODIUM 137.1 mmol/L (137-145); TOTAL PROTEIN 7.6 g/dL (6.3-8.2)
[2019-02-22] MEDS ORDERED: KETOROLAC TROMETHAMINE INJ/PF 30 MG/1 ML SDV IV ONE (12:07)
[2019-02-22 13:16] LABS: CHLAM PCR NOT DETECTED (NOT DETECT); GON PCR NOT DETECTED (NOT DETECT)
--- NOTE | 2019-02-22 13:19 | RADIOLOGY REPORT (SQ) ---
EXAM DESCRIPTION: CT ABD/PELVIS WITH IV ONLY COMPLETED DATE/TIME: 02/22/2019 12:53 pm REASON FOR STUDY: abdominal pain COMPARISON: None. TECHNIQUE: CT scan of the abdomen and pelvis performed using helical scanning technique with dynamic intravenous contrast injection. No oral contrast. Images reviewed with lung, soft tissue, and bone windows. Reconstructed coronal and sagittal MPR images reviewed. Delayed images for evaluation of the urinary system also acquired. All images stored on PACS. All CT scanners at this facility use dose modulation, iterative reconstruction, and/or weight based d osing when appropriate to reduce radiation dose to as low as reasonably achievable (ALARA). [facility]: Dose Right [facility]: CareDose [facility]: Dose Right [facility]: Teradose 4D [facility]: you[facility]Q - Maps With Life CONTRAST TYPE AND DOSE: contrast/concentration: Isovue 350.00 mg/ml; Total Contrast Delivered: 89.0 ml; Total Saline Delivered: 70.0 ml RENAL FUNCTION: BUN 13, creatinine 0.79 RADIATION DOSE: CT Rad equipment meets quality standard of care and radiation dose reduction techniq ues were employed. CTDIvol: 5.7 - 7.9 mGy. DLP: 705 mGy-cm.. LIMITATIONS: None. FINDINGS: LOWER CHEST: No significant findings. No nodules or infiltrates. LIVER: Normal size. No masses. No dilated ducts. SPLEEN: Normal size. No focal lesions. PANCREAS: No masses. No significant calcifications. No adjacent inflammation or peripancreatic fluid collections. Pancreatic duct not dilated. GALLBLADDER: No identified stones by CT criteria. No inflammatory changes to suggest cholecystitis. ADRENAL GLANDS: No significant masses or asymmetry. RIGHT KIDNEY AND URETER: No solid masses. No significant calcifications. No hydronephrosis or hyd roureter. LEFT KIDNEY AND URETER: No solid masses. No significant calcifications. No hydronephrosis or hydr oureter. AORTA AND VESSELS: No aneurysm. No dissection. Renal arteries, SMA, celiac without stenosis. RETROPERITONEUM: No retroperitoneal adenopathy, hemorrhage or masses. BOWEL AND PERITONEAL CAVITY: No masses or inflammatory changes. No free fluid or peritoneal masses. APPENDIX: Normal. PELVIS: No mass. No free fluid. Normal bladder. ABDOMINAL WALL: No masses. No hernias. BONES: Bone island within the proximal left femur. No acute bony abnormality. No suspicious osseous lesions. OTHER: No other significant finding. IMPRESSION: No evidence of acute intra-abdominal/pelvic process. Normal appendix. TECHNICAL DOCUMENTATION: JOB ID: [id number] Quality ID # [id number]: Final reports with documentation of one or more dose reduction techniques (e.g., Au tomated exposure control, adjustment of the mA and/or kV according to patient size, use of iterative reconstruction technique) 2010 [employer]- All Rights Reserved Reading location - IP/workstation name: [facility]
[2019-02-22 13:30] LABS: URINE AMPHETAMINES SCREEN NEGATIVE; URINE BARBITURATES SCREEN NEGATIVE; URINE BENZODIAZEPINES SCREEN NEGATIVE; URINE COCAINE SCREEN NEGATIVE; URINE MARIJUANA (THC) SCREEN UNCONFIRMED POSITIVE; URINE METHADONE SCREEN NEGATIVE; URINE PHENCYCLIDINE SCREEN NEGATIVE
[2019-02-22 13:57] VITALS: BP 137/82
== END 2019-02-22 13:59 | disposition home or self-care (01) ==
LOC: ER 10:11
DX: K85.20 Alcohol induced acute pancreatitis without necrosis or infection (principal); F10.20 Alcohol dependence, uncomplicated; R10.84 Generalized abdominal pain; R19.7 Diarrhea, unspecified; R11.2 Nausea with vomiting, unspecified; R03.0 Elevated blood-pressure reading, without diagnosis of hypertension; F17.200 Nicotine dependence, unspecified, uncomplicated; Z91.030 Bee allergy status
CPT/HCPCS: 99284; 96361; 96374; 96375; 36415; 87086; 80307 ×2; 83690; 85025; 80053; 81001; 87491; 87591; 74177; J1885; J2405; J7030

== ENCOUNTER 2019-03-06 07:51 | Emergency (ER) | payer SELFPAY ==
[2019-03-06 07:59] VITALS: BP 138/83
[2019-03-06] MEDS ORDERED: ONDANSETRON HCL INJ/PF 4 MG/2 ML SDV IV ONE (08:43)
[2019-03-06] MEDS ORDERED: NORMAL SALINE 1000 ML 1,000 ML IV ONE (08:43)
[2019-03-06] MEDS ORDERED: MAG HYDROX/AL HYDROX/SIMETH SUSP 30 ML UDCUP PO ONE (08:56)
[2019-03-06] MEDS ORDERED: LIDOCAINE 2% VISCOUS SOLN 20 ML UDCUP PO ONE (08:56)
[2019-03-06] MEDS ORDERED: METOCLOPRAMIDE HCL ORAL SOLN 10 MG/10 ML UDCUP PO ONE (08:56)
--- NOTE | 2019-03-06 08:59 | ER Document Report ---
ED General - General Chief Complaint: Lower Abdominal Pain Stated Complaint: ABDOMINAL PAIN Time Seen by Provider: 03/06/19 08:42 TRAVEL OUTSIDE OF THE U.[place]. IN LAST 30 DAYS: No - HPI Notes: Patient is a 33-year-old male that presents to the emergency department for chief complaint of abdominal pain and dental ache. Patient reports waking up this morning around 3 AM with a dental pain on his left mandibular molar. He states he took 3 200 mg tablets of Motrin and 1 600 mg tablet of Motrin at around 4 AM for the pain. He states shortly after taking the medication he began to have an epigastric discomfort. He denies any radiation of the pain. He describes it as sharp and constant. He did take a Zofran and states that gave him some relief of the associated nausea. He denies any vomiting, fevers and diarrhea. Patient has been weaning himself off of alcohol and reports he is down to 2-3 beers a day. He has an appointment at [facility] for alcohol detox in the next week or so. He was recently seen in the emergency room and had a mild pancreatitis and states after being seen here his symptoms had completely resolved prior to this morning. Past Medical History: Alcohol dependence Past Surgical History: Reviewed in chart Social History: Daily alcohol. Family History: Reviewed and noncontributory for presenting illness Allergies: Reviewed, see documented allergy list. REVIEW OF SYSTEMS: CONSTITUTIONAL : No fever No chills No diaphoresis No recent illness EENT: Dental pain No vision changes No congestion No sore throat CARDIOVASCULAR: No chest pain No palpitations RESPIRATORY: No shortness of breath No cough No difficulty breathing GASTROINTESTINAL: abdominal pain nausea No vomiting No diarrhea GENITOURINARY: No dysuria No hematuria No difficulty urinating MUSCULOSKELETAL: No back pain No leg pain No arm pain SKIN: No rashes No lesions LYMPHATIC: No swollen, enlarged glands. NEUROLOGICAL: No lightheadedness No headache No weakness No paresthesias PSYCHIATRIC: No anxiety No depression PHYSICAL EXAMINATION: Vital signs reviewed, nursing noted reviewed. GENERAL: Well-appearing, well-nourished and in no acute distress. HEAD: Atraumatic, normocephalic. EYES: Eyes appear normal, extraocular movements intact, sclera anicteric, conjunctiva are normal. ENT: Tenderness to percussion of posterior molar on right mandibular side with mild surrounding gingival erythema, no areas of fluctuance or edema. Nares patent, oropharynx clear without exudates. Moist mucous membranes. NECK: Normal range of motion, supple without lymphadenopathy LUNGS: Breath sounds clear to auscultation bilaterally and equal. No wheezes rales or rhonchi. HEART: Regular rate and rhythm without murmurs ABDOMEN: Soft, mild epigastric tenderness, normoactive bowel sounds. No rebound, guarding, or rigidity. No masses appreciated. EXTREMITIES: Nontender, good range of motion, no pitting or edema. NEUROLOGICAL: No focal neurological deficits. Moves all extremities spontaneously Motor and sensory grossly intact on exam. PSYCH: Normal mood, normal affect. SKIN: Warm, Dry, normal turgor, no rashes or lesions noted on exposed skin - Related Data Allergies/Adverse Reactions: No Known Drug Allergies Allergy (Verified 03/06/19 07:52) bee stings Allergy (Uncoded 03/06/19 07:52) Past Medical History - Social History Smoking Status: Current Every Day Smoker Family History: Reviewed & Not Pertinent Renal/ Medical History: Denies: Hx Peritoneal Dialysis Skin Medical History: Reports Hx MRSA Psychiatric Medical History: Reports: Hx Attention Deficit Hyperactivity Disorder, Hx Depression Traumatic Medical History: Reports: Hx Fractures - hand and nose Past Surgical History: Reports: Hx Nose Surgery, Hx Orthopedic Surgery - R hand - Immunizations Immunizations up to date: Yes Hx Diphtheria, Pertussis, Tetanus Vaccination: Yes Physical Exam - Vital signs Vitals: Temp Pulse Resp BP Pulse Ox 97.5 F 85 20 138/83 H 98 03/06/19 07:57 03/06/19 07:57 03/06/19 07:57 03/06/19 07:57 03/06/19 07:57 Course - Re-evaluation Re-evalutation: 03/06/19 08:58 Vitals reviewed. Nursing notes reviewed. Patient is afebrile and nontoxic. He took Zofran just prior to arrival and did have some improvement. Patient took 1200 mg of Motrin which may be the cause of his epigastric discomfort. He was given a GI cocktail for symptomatic management. He does have a history of recent pancreatitis and is continuing to use alcohol daily although he has been doing a good job of weaning himself off. Lab work will be obtained to evaluate for pancreatitis and electrolyte issues. Patient will be started on penicillin for his dental infection. There is currently no signs of dental abscess requiring drainage. 03/06/19 10:50 Patient's lab work appears normal. He did get symptomatic relief after GI cocktail. He has no acute pancreatitis. He will be discharged home in stable condition. He was encouraged to continue weaning off alcohol and follow with [facility] for detox. He will be started on omeprazole. He was counseled on NSAID use. He is stable at discharge. Laboratory 03/06/19 03/06/19 09:15 09:15 WBC 9.5 RBC 4.63 Hgb 15.7 Hct 44.3 MCV 96 MCH 33.8 H MCHC 35.3 RDW 13.0 Plt Count 239 Seg Neutrophils % 68.3 Lymphocytes % 18.5 Monocytes % 6.6 Eosinophils % 6.0 Basophils % 0.6 Absolute Neutrophils 6.5 Absolute Lymphocytes 1.7 Absolute Monocytes 0.6 Absolute Eosinophils 0.6 Absolute Basophils 0.1 Sodium 139.3 Potassium 4.5 Chloride 113 H Carbon Dioxide 22 Anion Gap 4 L BUN 12 Creatinine 0.80 Est GFR ( Amer) > 60 Est GFR (Non-Af Amer) > 60 Glucose 96 Calcium 9.2 Total Bilirubin 0.4 Direct Bilirubin 0.3 Neonat Total Bilirubin Not Reportable Neonat Direct Bilirubin Not Reportable Neonat Indirect Bili Not Reportable AST 34 ALT 19 L Alkaline Phosphatase 68 Total Protein 6.6 Albumin 3.6 Lipase 161.1 - Vital Signs Vital signs: Temp Pulse Resp BP Pulse Ox 97.5 F 85 20 138/83 H 98 03/06/19 07:57 03/06/19 07:57 03/06/19 07:57 03/06/19 07:57 03/06/19 07:57 - Laboratory Result Diagrams: 03/06/19 09:15 03/06/19 09:15 Laboratory results interpreted by me: 03/06/19 03/06/19 09:15 09:15 MCH 33.8 H Chloride 113 H Anion Gap 4 L ALT 19 L Discharge - Discharge Clinical Impression: Abdominal pain, acute, epigastric, Dental infection Condition: Stable Disposition: HOME, SELF-CARE Instructions: Abdominal Pain ([facility]), Dental Infection or Abscess ([facility]) Additional Instructions: Please return to the emergency department if you have any worsening, or concern of your symptoms. Please return to the emergency department if you develop chest pain, difficulty breathing, severe abdominal pain, or ongoing vomiting. Please follow-up with your primary care physician in 2-3 days and any other recommended physicians. If prescribed, take all medications as directed. If you have any questions or concerns do not hesitate to return the emergency department for evaluation. [] Prescriptions: Omeprazole 40 mg PO DAILY #30 capsule. Penicillin V Potassium [Penicillin Vk 500 mg Tablet] 500 mg PO BID #20 tablet Referrals: [facility] [Provider Group] - Follow up as needed
[2019-03-06] MEDS ORDERED: PENICILLIN V POTASSIUM 500 MG TABLET PO ONE (09:00)
[2019-03-06 09:37] LABS: ABSOLUTE BASOPHILS # (AUTO) 0.1 10^3/uL (0.0-0.2); ABSOLUTE EOSINOPHILS # (AUTO) 0.6 10^3/uL (0.0-0.6); ABSOLUTE LYMPHOCYTES (AUTO) 1.7 10^3/uL (0.5-4.7); ABSOLUTE MONOCYTES (AUTO) 0.6 10^3/uL (0.1-1.4); ABSOLUTE NEUT (AUTO) 6.5 10^3/uL (1.7-8.2); BASOPHILS % (AUTO) 0.6 % (0-2); HEMATOCRIT 44.3 % (37.9-51.0); HEMOGLOBIN 15.7 g/dL (13.5-17.0); LYMPHOCYTES % (AUTO) 18.5 % (13-45); MEAN CORPUSCULAR HEMOGLOBIN 33.8 pg (27.0-33.4); MEAN CORPUSCULAR HGB CONC 35.3 g/dL (32.0-36.0); MEAN CORPUSCULAR VOLUME 96 fl (80-97); MONOCYTES % (AUTO) 6.6 % (3-13); PLATELET COUNT 239 10^3/uL (150-450); RED BLOOD COUNT 4.63 10^6/uL (4.35-5.55); SEGMENTED NEUTROPHILS % (AUTO) 68.3 % (42-78); TOTAL CELLS COUNTED % (AUTO) 100 %; WHITE BLOOD COUNT 9.5 10^3/uL (4.0-10.5)
[2019-03-06 09:57] LABS: ALANINE AMINOTRANSFERASE 19 U/L (21-72); ALBUMIN 3.6 g/dL (3.5-5.0); ALKALINE PHOSPHATASE 68 U/L (38-126); ASPARTATE AMINO TRANSFERASE 34 U/L (17-59); BILIRUBIN,DIRECT 0.3 mg/dL (0.0-0.4); BILIRUBIN,TOTAL 0.4 mg/dL (0.2-1.3); BLOOD UREA NITROGEN 12 mg/dL (7-20); CALCIUM 9.2 mg/dL (8.4-10.2); GLUCOSE 96 mg/dL (75-110); LIPASE 161.1 U/L (23-300); POTASSIUM 4.5 mmol/L (3.6-5.0); TOTAL PROTEIN 6.6 g/dL (6.3-8.2)
[2019-03-06 10:03] LABS: CARBON DIOXIDE 22 mmol/L (22-30); CHLORIDE 113 mmol/L (98-107); SODIUM 139.3 mmol/L (137-145)
[2019-03-06 10:13] LABS: ANION GAP 4 (5-19)
== END 2019-03-06 11:49 | disposition home or self-care (01) ==
LOC: ER 07:51
DX: R10.13 Epigastric pain (principal); K04.7 Periapical abscess without sinus; R10.30 Lower abdominal pain, unspecified; F10.20 Alcohol dependence, uncomplicated; K08.89 Other specified disorders of teeth and supporting structures; Z79.899 Other long term (current) drug therapy; F17.200 Nicotine dependence, unspecified, uncomplicated
CPT/HCPCS: 99284; 96360; 96361; 36415; 83690; 85025; 80053; J3490; J7030

== ENCOUNTER 2020-06-06 12:00 | Emergency (ER) | payer SELFPAY ==
[2020-06-06 12:07] VITALS: BP 120/83
[2020-06-06] MEDS ORDERED: IBUPROFEN 800 MG TABLET PO ONE (12:47)
--- NOTE | 2020-06-06 12:52 | ER Document Report ---
ED Hand/Wrist Injury - General Chief Complaint: Wrist Injury Stated Complaint: WRIST PAIN Time Seen by Provider: 06/06/20 12:44 Mode of Arrival: Ambulatory Information source: Patient Notes: 34-year-old male presented to ED for pain to the right hand and wrist. He states he punched a wall last night. He states he has a lot of pain and swelling to the right hand and wrist. He does have a history of fractures to the hand nose and elbow and arm. He states he does smoke a pack a day drinks weekly. He is alert oriented respirations regular nonlabored speaking in full sentences. TRAVEL OUTSIDE OF THE [place] IN LAST 30 DAYS: No - HPI Injury to: Hand, Wrist Onset: Yesterday Where: Home Timing: Still present, Worse Quality of pain: Sharp Severity: Severe Pain Level: 5 Context: Other - Related Data Allergies/Adverse Reactions: No Known Drug Allergies Allergy (Verified 03/06/19 07:52) bee stings Allergy (Uncoded 03/06/19 07:52) Past Medical History - General Information source: Patient - Social History Smoking Status: Current Every Day Smoker Cigarette use (# per day): Yes - Pack per day Smoking Education Provided: Yes - 4 minutes Frequency of alcohol use: Social - Weekly Drug Abuse: None Family History: Reviewed & Not Pertinent - Past Medical History Cardiac Medical History: Reports: None Pulmonary Medical History: Reports: None EENT Medical History: Reports: None Neurological Medical History: Reports: None Endocrine Medical History: Reports: None Renal/ Medical History: Reports: None Malignancy Medical History: Reports None GI Medical History: Reports: None Musculoskeletal Medical History: Reports Hx Musculoskeletal Trauma Skin Medical History: Reports Hx MRSA Psychiatric Medical History: Reports: Hx Attention Deficit Hyperactivity Disorder, Hx Depression Traumatic Medical History: Reports: Hx Fractures - hand and nose and arm and elbow Infectious Medical History: Reports: None Past Surgical History: Reports: Hx Nose Surgery, Hx Orthopedic Surgery - R hand - Immunizations Immunizations up to date: Yes Hx Diphtheria, Pertussis, Tetanus Vaccination: Yes Review of Systems - Review of Systems Constitutional: No symptoms reported EENT: No symptoms reported Cardiovascular: No symptoms reported Respiratory: No symptoms reported Gastrointestinal: No symptoms reported Genitourinary: No symptoms reported Male Genitourinary: No symptoms reported Musculoskeletal: Other - Pain swelling to the right hand and wrist radial side Skin: No symptoms reported Hematologic/Lymphatic: No symptoms reported Neurological/Psychological: No symptoms reported -: Yes All other systems reviewed and negative Physical Exam - Vital signs Vitals: Temp Pulse Resp BP Pulse Ox 98.3 F 102 H 20 120/83 98 06/06/20 12:06 06/06/20 12:06 06/06/20 12:06/06/20 12:06/06/20 12:06 Interpretation: Normal - General General appearance: Appears well, Alert - HEENT Head: Normocephalic, Atraumatic Eyes: Normal Pupils: PERRL - Respiratory Respiratory status: No respiratory distress Chest status: Nontender Breath sounds: Normal Chest palpation: Normal - Cardiovascular Rhythm: Regular Heart sounds: Normal auscultation Murmur: No - Abdominal Inspection: Normal Distension: No distension Bowel sounds: Normal Tenderness: Nontender Organomegaly: No organomegaly - Back Back: Normal, Nontender - Extremities General upper extremity: Normal temperature General lower extremity: Normal inspection, Nontender, Normal color, Normal ROM, Normal temperature, Normal weight bearing. No: Cristina's sign Hand: Tender, Ecchymosis, No evidence of human bite, No evidence of FB, Swelling, Other - Thumb side swelling - Neurological Neuro grossly intact: Yes Cognition: Normal Orientation: AAOx4 [place] Coma Scale Eye Opening: Spontaneous [place] Coma Scale Verbal: Oriented [place] Coma Scale Motor: Obeys Commands Magdaleno Coma Scale Total: 15 Speech: Normal Motor strength normal: LUE, RUE, LLE, RLE Sensory: Normal - Psychological Associated symptoms: Normal affect, Normal mood - Skin Skin Temperature: Warm Skin Moisture: Dry Skin Color: Normal Course - Re-evaluation Re-evalutation: 06/06/20 22:49 Wrist x-ray showed an intra-articular fracture of the distal radius. She was treated with a sugar tong splint and sling. Patient was instructed to follow-up with orthopedics by phone tomorrow to schedule follow-up. Patient was given instructions on elevation ice and ibuprofen. Patient verbalized understanding and agreement with treatment plan and patient was discharged home. - Vital Signs Vital signs: Temp Pulse Resp BP Pulse Ox 98.3 F 102 H 20 120/83 98 06/06/20 12:06 06/06/20 12:06/06/20 12:06/06/20 12:06/06/20 12:06 - Diagnostic Test Radiology reviewed: Image reviewed, Reports reviewed Procedures - Immobilization Right Wrist Time completed: 14:32 Immobilizer type: Sugar tong, Sling Performed by: PCT Post-Proc Neuro Vasc Exam: Normal Alignment checked and good: Yes Discharge - Discharge Clinical Impression: intra-articular distal radius fracture Condition: Stable Disposition: HOME, SELF-CARE Additional Instructions: Fractured Radius you have a intra-articular fracture which means it is very important to go to the radiologist The bone called the radius is fractured. This type of fracture is typically caused by falling onto the outstretched hand. The fracture is not ser ious, however, and should heal well with adequate protection. Your physician's evaluation shows the bone is in good position to heal. A cast or splint is used to protect the fracture. For the first few days after the injury, the arm should be elevated and ice packed. Healing takes from three to eight weeks, depending on the age of the patient and the seriousness of the fracture. Your doctor has explained the treatment plan. It's important that you follow up as instructed to prevent complications. Call the doctor or return at once if severe pain or swelling occur, or if the hand becomes numb, swollen, or discolored. Ice & Elevation Apply ice packs frequently against the painful area. Many different schedules are recommended, such as "20 minutes on, 20 minutes off" or "one hour ice, two hours rest." If you need to work, you may need to go longer between ice treatments. You should plan to have the area ice packed AT LEAST one-fourth of the time. The ice should be applied over the wrap, tape, or splint, or over a layer of cloth -- not directly against the skin. Some ice bags have a built-in cloth and can be put directly on the skin. Your injured part should be elevated as much as possible over the next 48 hours. Try to keep the injury above the level of the heart. Avoid use of the injured area. Elevation and rest will decrease the swelling. Sling to be Used You are to use a sling. This is to rest the area, and to prevent it from hanging downward. Use this sling for at least 48 hours (or longer if so instructed by the doctor). Some types of splints will break if not supported by the sling, so the sling must be used as long as the splint. Ice can be placed inside the sling over the injured area. Once you remove the sling, you should not encounter pain when you use the arm and hand. If you do feel pain beneath the cast or splint, you must continue use of the sling. Splint Pending Casting Your injury can't be casted until the swelling has subsided. Therefore, a temporary splint has been placed to protect the injury. Full use of an injured area is not possible in a splint. You should follow the doctor's instructions concerning rest, ice, and elevation of the injury. Never do anything which causes pain under the splint. Keep the splint on ALL THE TIME until you return for casting. If there is unexpected severe pain, or numbness, discoloration, or swelling beyond the splint, you should return at once. FOLLOW-UP CARE: If you have been referred to a physician for follow-up care, call the physicians office for an appointment as you were instructed or within the next two days. If you experience worsening or a significant change in your symptoms, notify the physician immediately or return to the Emergency Department at any time for re-evaluation. Referrals: [facility] [Provider Group] - Follow up as needed
--- NOTE | 2020-06-06 13:46 | RADIOLOGY REPORT (SQ) ---
EXAM DESCRIPTION: WRIST RIGHT 3 VIEWS IMAGES COMPLETED DATE/TIME: 06/06/2020 1:20 pm REASON FOR STUDY: punched wall last night COMPARISON: None. NUMBER OF VIEWS: Three views. TECHNIQUE: AP, lateral, and oblique radiographic images acquired of the right wrist. LIMITATIONS: None. FINDINGS: MINERALIZATION: Normal. BONES: Nondisplaced intra-articular distal radius fracture. Soft tissue swelling. Metallic plate with four screws fourth metacarpal bone. Nonunited ulnar styloid versus old remote tr auma. SOFT TISSUES: No soft tissue swelling. No foreign body. OTHER: No other significant finding. IMPRESSION: 1. Nondisplaced intra-articular distal radius fracture. COMMENT: 1. 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 TECHNICAL DOCUMENTATION: JOB ID: [id number] 2010 [employer]- All Rights Reserved Reading location - IP/workstation name: [email or web address]
--- NOTE | 2020-06-06 13:54 | RADIOLOGY REPORT (SQ) ---
EXAM DESCRIPTION: HAND RIGHT 3 VIEWS IMAGES COMPLETED DATE/TIME: 06/06/2020 1:20 pm REASON FOR STUDY: punched wall last night COMPARISON: None. EXAM PARAMETERS: NUMBER OF VIEWS: Three views. TECHNIQUE: AP, lateral and oblique radiographic images acquired of the right hand. LIMITATIONS: None. FINDINGS: MINERALIZATION: Normal. BONES: Mild deformity fifth metacarpal maybe related prior remote injury. Metallic plate with screw s fourth metacarpal bone. Nondisplaced distal intra-articular radius fracture. JOINTS: No effusions. SOFT TISSUES: No soft tissue swelling. No foreign body. OTHER: No other significant finding. IMPRESSION: 1. Nondisplaced distal intra-articular radius fracture. TECHNICAL DOCUMENTATION: JOB ID: [id number] 2010 [employer]- All Rights Reserved Reading location - IP/workstation name: [email or web address]
[2020-06-06] MEDS ORDERED: HYDROCODONE/ACETAMINOPHEN 5-325 MG (6 TAB/ER DISP) PO PRN (14:00)
== END 2020-06-06 14:46 | disposition home or self-care (01) ==
LOC: ER 12:00
DX: S52.571A Other intraarticular fracture of lower end of right radius, initial encounter for closed fracture (principal); S60.229A Contusion of unspecified hand, initial encounter; M79.641 Pain in right hand; M79.89 Other specified soft tissue disorders; W22.01XA Walked into wall, initial encounter; Y92.009 Unspecified place in unspecified non-institutional (private) residence as the place of occurrence of the external cause; F17.210 Nicotine dependence, cigarettes, uncomplicated; Z91.030 Bee allergy status
CPT/HCPCS: 99283; 99406

== ENCOUNTER 2020-06-07 20:55 | Emergency (ER) | payer SELFPAY ==
[2020-06-07 21:13] VITALS: BP 113/70
[2020-06-07] MEDS ORDERED: HYDROCODONE/ACETAMINOPHEN 5-325 MG (6 TAB/ER DISP) PO PRN (22:07)
--- NOTE | 2020-06-07 22:09 | ER Document Report ---
HPI - HPI Time Seen by Provider: 06/07/20 21:59 Pain Level: 5 Notes: 34-year-old male patient presents emergency department chief complaint of right wrist pain. Patient reports he was seen here diagnosed with a fracture in his wrist. Patient reports he tried calling orthopedics this morning and they were unable to see him because they were closed. Patient reports he is having continued pain. Patient denies any new injury but states he does not know who to see for follow-up. He has a splint in place. - REPRODUCTIVE Reproductive: DENIES: : Past Medical History - General Information source: Patient - Social History Smoking Status: Current Every Day Smoker Chew tobacco use (# tins/day): No Frequency of alcohol use: Occasional Drug Abuse: None Family History: Reviewed & Not Pertinent Patient has homicidal ideation: No Musculoskeletal Medical History: Reports Hx Musculoskeletal Trauma Skin Medical History: Reports Hx MRSA Psychiatric Medical History: Reports: Hx Attention Deficit Hyperactivity Disorder, Hx Depression Traumatic Medical History: Reports: Hx Fractures - hand and nose and arm and elbow Past Surgical History: Reports: Hx Nose Surgery, Hx Orthopedic Surgery - R hand - Immunizations Immunizations up to date: Yes Hx Diphtheria, Pertussis, Tetanus Vaccination: Yes Vertical Provider Document - CONSTITUTIONAL Notes: PHYSICAL EXAMINATION: GENERAL: Well-appearing, well-nourished and in no acute distress. HEAD: Atraumatic, normocephalic. EYES: Pupils equal round extraocular movements intact, conjunctiva are normal. ENT: Nares patent NECK: Normal range of motion LUNGS: No respiratory distress Musculoskeletal: Splint in place to the right arm, cap refill less than 3 seconds, strong radial pulse. Skin [place] and dry. NEUROLOGICAL: Normal speech, normal gait. PSYCH: Normal mood, normal affect. SKIN: Warm, Dry, normal turgor, no rashes or lesions noted. - INFECTION CONTROL TRAVEL OUTSIDE OF THE [place] IN LAST 30 DAYS: No Course - Re-evaluation Re-evalutation: Patient provided Vicodin dispense pack. Patient given additional numbers for Ortho follow-up. Patient verbalized understanding agreement this plan. Patient understands keeping splint in place until seen by orthopedics. Splint appears to be well fitted. - Vital Signs Vital signs: Temp Pulse Resp BP Pulse Ox 98.4 F 88 20 113/70 98 06/07/20 22:00 06/07/20 21:10 06/07/20 21:10 06/07/20 21:10 06/07/20 21:10 Discharge - Discharge Clinical Impression: Right wrist pain Condition: Stable Disposition: HOME, SELF-CARE Additional Instructions: Please continue to take ibuprofen, follow the directions on the bottle. Take the [place] as needed for severe pain only. Follow-up with orthopedics on Wednesday. Referrals: THERESA PAGAN DO [ACTIVE STAFF] - Follow up as needed ROBYN HAN MD [ACTIVE STAFF] - Follow up as needed JERRELL LOYA JR, DO [ACTIVE PROVISIONAL STAFF] - Follow up as needed
== END 2020-06-07 22:15 | disposition home or self-care (01) ==
LOC: ER 20:55
DX: S62.101D Fracture of unspecified carpal bone, right wrist, subsequent encounter for fracture with routine healing (principal); M25.531 Pain in right wrist; X58.XXXD Exposure to other specified factors, subsequent encounter; F17.200 Nicotine dependence, unspecified, uncomplicated
CPT/HCPCS: 99283

== ENCOUNTER 2020-06-25 21:10 | Emergency (ER) | payer SELFPAY ==
[2020-06-25 21:52] VITALS: BP 136/79
[2020-06-26] MEDS ORDERED: ACETAMINOPHEN 325 MG TABLET PO ONE (00:10)
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
== END 2020-06-26 01:50 | disposition left against medical advice (07) ==
LOC: ER 21:10
DX: S20.211A Contusion of right front wall of thorax, initial encounter (principal); S53.105A Unspecified dislocation of left ulnohumeral joint, initial encounter; Y04.0XXA Assault by unarmed brawl or fight, initial encounter; Y92.009 Unspecified place in unspecified non-institutional (private) residence as the place of occurrence of the external cause; Z87.891 Personal history of nicotine dependence; Z53.20 Procedure and treatment not carried out because of patient's decision for unspecified reasons
CPT/HCPCS: 99281